=== PATIENT | male | born 1970 | race Asian ===

== ENCOUNTER → 2016-06-18 | Outpatient (CLI) | payer BC | END | disposition home or self-care (01) | LOC: C.LAB1850 14:54 | PROVIDERS: ATTEND Internal Medicine Clinical Cardiac Electrophysiology | DX: R07.89 Other chest pain (principal) ==

== ENCOUNTER → 2016-07-10 | Outpatient (CLI) | payer BC ==
--- NOTE | 2016-07-10 08:15 | DIAGNOSTIC IMAGING REPORT ---
ABDOMEN COMPLETE (US) CLINICAL HISTORY: K62.5,R10.11 upper abdominal pain, rectal bleeding COMPARISON STUDY: 10/21/2007 FINDINGS: The pancreas appears normal as visualized. The gallbladder appears sonographically normal. No focal hepatic masses are visualized. There is slight increase in hepatic echogenicity, finding which may indicate hepatic steatosis. The right kidney measures 10.4 cm in length. The left kidney measures 11.5 cm in length. There is a 22 mm right renal cyst. There is no ductal dilatation. The common buttock measures 4 mm. Spleen measures 9 cm in length. No splenic masses are visualized. There is no evidence of abdominal aortic dilatation. IMPRESSION: Suspected mild hepatic steatosis. 22 mm right renal cyst. Otherwise normal abdominal ultrasound.. Electronically signed by: Frank Olivares M.D. 07/10/2016 8:13 AM Dictated Date/Time: 07/10/2016 8:11 AM
== END | disposition home or self-care (01) ==
LOC: C.ULTR 07:43
PROVIDERS: ATTEND Internal Medicine Gastroenterology
DX: K62.5 Hemorrhage of anus and rectum (principal); R10.11 Right upper quadrant pain; N28.1 Cyst of kidney, acquired

== ENCOUNTER → 2016-07-10 | Outpatient (CLI) | payer BC ==
--- NOTE | 2016-07-10 16:26 | DIAGNOSTIC IMAGING REPORT ---
CHEST 2 VIEWS ROUTINE HISTORY: Atypical CHEST PAIN COMPARISON: Chest 06/25/2006. FINDINGS: The lungs are clear. Cardiac silhouette is normal in size. No pleural effusions. No pneumothorax. IMPRESSION: No acute process. Electronically signed by: Jun Smith M.D. 07/10/2016 4:25 PM Dictated Date/Time: 07/10/2016 4:24 PM
== END | disposition home or self-care (01) ==
LOC: C.RAD1850 15:58
PROVIDERS: ATTEND Family Medicine
DX: R07.9 Chest pain, unspecified (principal)

== ENCOUNTER → 2017-02-16 | Outpatient (CLI) | payer OTHER ==
--- NOTE | 2017-02-16 10:25 | DIAGNOSTIC IMAGING REPORT ---
CHEST 2 VIEWS ROUTINE CLINICAL HISTORY: Off. COMPARISON STUDY: Chest radiograph July 10, 2016. FINDINGS: Lung volumes are normal. No pneumothorax or pleural effusion is noted. There is no consolidation to suggest pneumonia. Pulmonary vascularity is normal. Cardiomediastinal silhouette is normal. Appearance of the chest is unchanged. IMPRESSION: No acute cardiopulmonary findings. Electronically signed by: Keegan Baptiste M.D. 02/16/2017 10:23 AM Dictated Date/Time: 02/16/2017 10:23 AM
== END | disposition home or self-care (01) ==
LOC: C.RAD1850 10:05
PROVIDERS: ATTEND Family Medicine
DX: R05 Cough (principal)

== ENCOUNTER → 2017-02-18 | Outpatient (CLI) | payer OTHER ==
[~2017-02-18] MED LIST: OPTIRAY 320 IV PRN
[2017-02-18 18:48] LABS: CREATININE 0.72 mg/dl (0.60-1.40)
--- NOTE | 2017-02-18 19:10 | DIAGNOSTIC IMAGING REPORT ---
(CHEST FOR PE) ANGIO WITH CT DOSE: 269.83 mGy.cm HISTORY: Hemoptysis RECENT TRAVEL, COUGHING BLOOD TECHNIQUE: Multiaxial CT images of the chest were performed following the intravenous administration of contrast to evaluate the pulmonary arteries. Maximal intensity projection images were also obtained. A dose lowering technique was utilized adhering to the principles of ALARA. COMPARISON STUDY: Chest series 02/16/2017 FINDINGS: Slight prominence a sending thoracic aorta with maximum diameter 3.6 cm. Pulmonary vasculature enhances appropriately. No significant filling defects. Study is negative for pneumothorax. Slight basilar interstitial and peribronchial prominence. No well-defined focal infiltrate. IMPRESSION: 1. Study is negative for pulmonary embolus. 2. Mild prominence of the a sending thoracic aorta at 3.6 cm. 3. Slight basilar peribronchial and interstitial prominence The above report was generated using voice recognition software. It may contain grammatical, syntax or spelling errors. Electronically signed by: Misha Crum M.D. 02/18/2017 7:08 PM Dictated Date/Time: 02/18/2017 7:05 PM
== END | disposition home or self-care (01) ==
LOC: C.CTS 17:28
PROVIDERS: ATTEND Family Medicine
DX: R04.2 Hemoptysis (principal)

== ENCOUNTER → 2017-04-06 | Outpatient (CLI) | payer OTHER ==
--- NOTE | 2017-04-06 11:31 | DIAGNOSTIC IMAGING REPORT ---
CT HEAD WITHOUT CONTRAST (CT) CLINICAL HISTORY: MEMORY LOSS,DIZZINESS COMPARISON STUDY: 08/03/2008 TECHNIQUE: Axial CT of the brain is performed from the vertex to the skull base. IV contrast was not administered for this examination. A dose lowering technique was utilized adhering to the principles of ALARA. CT DOSE: 788.63 mGycm FINDINGS: No intra or extra-axial mass lesions are visualized. There is no CT evidence of acute cortical infarction. There is no evidence of midline shift. There is no acute hemorrhage. No calvarial fractures are visualized. There is no evidence of pathologic ventricular dilatation. There is no evidence of acute sinusitis IMPRESSION: No acute intracranial findings Electronically signed by: Frank Olivares M.D. 04/06/2017 11:30 AM Dictated Date/Time: 04/06/2017 11:29 AM
== END | disposition home or self-care (01) ==
LOC: C.CTS 11:17
PROVIDERS: ATTEND Family Medicine
DX: R41.3 Other amnesia (principal); R42 Dizziness and giddiness

== ENCOUNTER → 2017-04-29 | Outpatient (CLI) | payer OTHER ==
--- NOTE | 2017-04-29 12:56 | DIAGNOSTIC IMAGING REPORT ---
MRI OF THE BRAIN WITHOUT AND WITH IV CONTRAST CLINICAL HISTORY: R29.90 Stroke-like symptoms, right leg not working is usual. Right hand pain. COMPARISON STUDY: Noncontrast head CT dated 04/06/2017 TECHNIQUE: MRI of the brain was performed from the vertex to the skull base utilizing various T1 and T2 weighted sequences. Following the IV administration of 7 mL of Gadavist contrast, additional enhanced images were obtained. FINDINGS: Sagittal T1, axial diffusion, proton density and T2 weighted axial, coronal FLAIR, and pre and post axial T1-weighted images were acquired. These were supplemented with post gadolinium coronal T1 weighted images. No intra or extra-axial mass lesions are visualized. Axial diffusion-weighted images reveal no evidence of acute or subacute infarction. There is no evidence of ventricular dilatation. Proton density T2-weighted and FLAIR images reveal a few nonspecific scattered small foci of increased of increased T2 and FLAIR signal within the white matter. There are no abnormal flow voids. There is no evidence of pathologic enhancement. There is a partially empty sella. IMPRESSION: 1. No evidence of acute or subacute infarction 2. No evidence of intracranial mass 3. Partially empty sella 4. There are few nonspecific small scattered foci of increased T2 and FLAIR signal within the white matter. Electronically signed by: Frank Olivares M.D. 04/29/2017 12:54 PM Dictated Date/Time: 04/29/2017 12:50 PM
== END | disposition home or self-care (01) ==
LOC: C.MRIBC 11:30
PROVIDERS: ATTEND Psychiatry & Neurology Neurology
DX: R29.90 Unspecified symptoms and signs involving the nervous system (principal)

== ENCOUNTER → 2017-06-22 | Outpatient (CLI) | payer OTHER | END | disposition home or self-care (01) | LOC: C.PATHSPEC 10:59 | PROVIDERS: ATTEND Urology | DX: R10.11 Right upper quadrant pain (principal) ==